=== PATIENT | female | born 1945 | race Caucasian/White ===

== ENCOUNTER 2017-10-24 12:54 | Outpatient (REF) | payer MEDICARE, BC, SELFPAY ==
--- NOTE | 2017-10-24 12:00 | SKI_PTH ---
PATIENT: Jerrica Resendiz LOC: [facility] U#:[id number] AGE/SX: 72/F ROOM: RE10/24/[address]: Joan Knight : 1945 BED: DIS: 10/24/2017 SPEC #: [id number] RECD: 10/25/17 12:36 STATUS: JACOB RESylvester #: [id number] GURDEEP: 10/24/17 12:[address]: Joan Deleon DEPT: Surgical Specimen RECD BY: Nancy Castro ENTERED: 10/25/17 12:36 SP TYPE: NICOLAS VILLEGAS DR: Cherrie Souza Tissues: 1 - SKIN BIOPSY(SHAVE/PUNCH) Procedures: SKIN LEVEL 4 Comments: [id number]
== END 2017-10-24 13:14 ==
LOC: NCHCN 12:54
PROVIDERS: PCP Nurse Practitioner Family; Visit Provider Nurse Practitioner Family
DX: L82.0 Inflamed seborrheic keratosis (principal)
CPT/HCPCS: 88305

== ENCOUNTER 2019-08-10 22:06 | Outpatient (REF) | payer MEDICARE, BC, SELFPAY ==
[2019-08-10 21:48] LABS: Hemoglobin A1C 6.7 % (3.8-5.6)
== END 2019-08-10 22:26 ==
LOC: NCHCN 22:06
PROVIDERS: PCP Nurse Practitioner Family; Visit Provider Nurse Practitioner Family
DX: R73.03 Prediabetes (principal)
CPT/HCPCS: 83036

== ENCOUNTER 2019-11-10 11:14 | Outpatient (REF) | payer MEDICARE, BC, SELFPAY ==
[2019-11-10 21:40] LABS: Anion Gap 9.9 mmol/L (3-11); BUN 16 mg/dL (7-18); CO2 27.1 mmol/L (21.0-32.0); CREATININE 0.56 mg/dL (0.55-1.02); Chloride 104 mmol/L (98-107); Glucose 108 mg/dL (74-106); Sodium 141 mmol/L (136-145)
[2019-11-10 21:51] LABS: COMMENT (LAB VIEW ONLY) 145.51 mg/dL; Microalb ug/mg Crea 11.1 ug/mg Cr
== END 2019-11-10 11:34 ==
LOC: NCHCN 11:14
PROVIDERS: PCP Nurse Practitioner Family; Visit Provider Nurse Practitioner Family
DX: E11.9 Type 2 diabetes mellitus without complications (principal); I10 Essential (primary) hypertension
CPT/HCPCS: 80048; 82043; 82570

== ENCOUNTER 2019-11-25 16:38 | Outpatient (REF) | payer MEDICARE, BC, SELFPAY ==
[2019-11-29 17:43] LABS: Patient Race White; SARS-CoV-2 RNA Undetected (Undetected); SARS-CoV-2 Specimen Source Nasopharynx
== END 2019-11-25 16:58 ==
LOC: NCHCN 16:38
PROVIDERS: PCP Nurse Practitioner Family; Visit Provider Nurse Practitioner Family
DX: B34.9 Viral infection, unspecified (principal)
CPT/HCPCS: U0003

== ENCOUNTER 2020-11-10 20:40 | Outpatient (REF) | payer MEDICARE, BC, SELFPAY ==
[2020-11-10 21:25] LABS: NT-proBNP 255 pg/mL (<300)
[2020-11-10 21:52] LABS: COMMENT (LAB VIEW ONLY) 31.74 mg/dL; Microalb ug/mg Crea 20.5 ug/mg Cr
== END 2020-11-10 20:41 | disposition home or self-care (01) ==
LOC: NCHCN 20:40
PROVIDERS: PCP Nurse Practitioner Family; Visit Provider Nurse Practitioner Family
DX: R06.09 Other forms of dyspnea (principal); E11.9 Type 2 diabetes mellitus without complications; I10 Essential (primary) hypertension
CPT/HCPCS: 85027; 82043; 82570; 83880

== ENCOUNTER 2020-11-11 21:07 | Outpatient (REF) | payer MEDICARE, BC, SELFPAY ==
[2020-11-11 21:29] LABS: HCT 38.8 % (36.0-46.0); HGB 12.7 g/dL (11.2-15.7); MCHC 32.7 % (32.0-36.0); MCV 88.6 fL (80-95); MPV 9.7 fL (8.0-11.0); Platelet Count 297 10^3/uL (130-400); RBC 4.38 10^6/uL (3.93-5.22); RDW 13.8 % (11.7-14.6); RDW-SD 44.8 fL; WBC 7.52 10^3/uL (4.4-10.8)
== END 2020-11-11 21:08 | disposition home or self-care (01) ==
LOC: NCHCN 21:07
PROVIDERS: PCP Nurse Practitioner Family; Visit Provider Nurse Practitioner Family
DX: R06.09 Other forms of dyspnea (principal)
CPT/HCPCS: 85027

== ENCOUNTER 2021-05-16 20:06 | Outpatient (REF) | payer MEDICARE, SELFPAY ==
[2021-05-16 19:33] LABS: ALT 22 U/L (14-59); AST 16 U/L (15-37); Albumin 3.8 g/dL (3.4-5.0); Alkaline Phosphatase 62 U/L (46-116); Anion Gap 9.2 mmol/L (3-11); BUN 14 mg/dL (7-18); Bilirubin, Total 0.3 mg/dL (0.2-1.0); CO2 26.8 mmol/L (21.0-32.0); CREATININE 0.6 mg/dL (0.55-1.02); Calcium 8.9 mg/dL (8.5-10.1); Calculated LDL 39 mg/dL (<100); Chloride 105 mmol/L (98-107); Cholesterol 115 mg/dL (<200); Glucose 119 mg/dL (74-106); HDL Cholesterol 52 mg/dL (40-60); Potassium 4.4 mmol/L (3.5-5.1); Sodium 141 mmol/L (136-145); Triglyceride 120 mg/dL (<150)
== END 2021-05-16 20:07 | disposition home or self-care (01) ==
LOC: NCHCN 20:06
PROVIDERS: PCP Nurse Practitioner Family; Visit Provider Nurse Practitioner Family
DX: E11.9 Type 2 diabetes mellitus without complications (principal); E66.9 Obesity, unspecified; I25.10 Atherosclerotic heart disease of native coronary artery without angina pectoris; E78.5 Hyperlipidemia, unspecified
CPT/HCPCS: 80053; 80061

== ENCOUNTER 2022-05-01 11:43 | Outpatient (REF) | payer MEDICARE, SELFPAY ==
[2022-05-01 16:21] LABS: COMMENT (LAB VIEW ONLY) 80.41 mg/dL; Microalb ug/mg Crea 11.8 ug/mg Cr
== END 2022-05-01 11:44 | disposition home or self-care (01) ==
LOC: NCHCN 11:43
PROVIDERS: PCP Nurse Practitioner Family; Visit Provider Nurse Practitioner Family
DX: E11.9 Type 2 diabetes mellitus without complications (principal)
CPT/HCPCS: 82043; 82570

== ENCOUNTER 2023-05-06 12:59 | Outpatient (REF) | payer MEDICARE, SELFPAY ==
[2023-05-06 15:20] LABS: Hemoglobin A1C 7.1 % (<5.7)
[2023-05-06 15:21] LABS: Anion Gap 8.7 mmol/L (3-11); BUN 14 mg/dL (7-18); CO2 28.3 mmol/L (21.0-32.0); CREATININE 0.6 mg/dL (0.55-1.02); Calcium 9.2 mg/dL (8.5-10.1); Calculated LDL 47 mg/dL (<100); Chloride 104 mmol/L (98-107); Cholesterol 132 mg/dL (<200); Estimated GFR 92.39 (mL/min/1.73m2); Glucose 125 mg/dL (74-106); HDL Cholesterol 54 mg/dL (40-60); Potassium 4.2 mmol/L (3.5-5.1); Sodium 141 mmol/L (136-145); TSH 0.27 uIU/Ml (0.36-3.74); Triglyceride 155 mg/dL (<150)
[2023-05-06 15:58] LABS: COMMENT (LAB VIEW ONLY) 81.78 mg/dL; Microalb ug/mg Crea 7.2 ug/mg Cr
== END 2023-05-06 13:00 | disposition home or self-care (01) ==
LOC: NCHCN 12:59
PROVIDERS: PCP Nurse Practitioner Family; Visit Provider Nurse Practitioner Family
DX: E11.9 Type 2 diabetes mellitus without complications (principal)
CPT/HCPCS: 80048; 80061; 82043; 82570; 83036; 84443

== ENCOUNTER 2023-08-12 15:01 | Outpatient (REF) | payer MEDICARE, SELFPAY ==
[2023-08-12 16:19] LABS: Hemoglobin A1C 6.8 % (<5.7)
[2023-08-12 16:25] LABS: TSH 0.48 uIU/Ml (0.36-3.74)
== END 2023-08-12 15:02 | disposition home or self-care (01) ==
LOC: NCHCN 15:01
PROVIDERS: PCP Nurse Practitioner Family; Visit Provider Nurse Practitioner Family
DX: E11.9 Type 2 diabetes mellitus without complications (principal); E03.8 Other specified hypothyroidism
CPT/HCPCS: 83036; 84443

== ENCOUNTER 2024-08-03 13:07 | Outpatient (REF) | payer MEDICARE, SELFPAY ==
[2024-08-03 15:55] LABS: COMMENT (LAB VIEW ONLY) 148.84 mg/dL; Microalb ug/mg Crea 16.4 ug/mg Cr
== END 2024-08-03 13:08 | disposition home or self-care (01) ==
LOC: NCHCN 13:07
PROVIDERS: PCP Nurse Practitioner Family; Visit Provider Nurse Practitioner Family
DX: E11.9 Type 2 diabetes mellitus without complications (principal)
CPT/HCPCS: 82043; 82570